=== PATIENT | female | born 2000 | race Caucasian/White ===

== ENCOUNTER 2022-06-08 14:51 | Outpatient (CLI) | payer BC, SELFPAY | END 2022-06-08 14:52 | disposition home or self-care (01) | PROVIDERS: PCP Nurse Practitioner Family; Visit Provider Family Medicine | DX: Z01.419 Encounter for gynecological examination (general) (routine) without abnormal findings (principal); E66.9 Obesity, unspecified; E03.9 Hypothyroidism, unspecified; E55.9 Vitamin D deficiency, unspecified; Z13.6 Encounter for screening for cardiovascular disorders; Z13.1 Encounter for screening for diabetes mellitus | CPT/HCPCS: 80061; 82306; 82947; 84443 ==

== ENCOUNTER 2022-10-26 08:27 | Outpatient (CLI) | payer BC, SELFPAY ==
[2022-10-26 11:04] LABS: Chlamydia DNA Amplified* NOT DETECTED (No Detected); GC DNA Amplified* NOT DETECTED (No Detected)
== END 2022-10-26 08:28 | disposition home or self-care (01) ==
PROVIDERS: PCP Nurse Practitioner Family; Visit Provider Registered Nurse
DX: Z11.3 Encounter for screening for infections with a predominantly sexual mode of transmission (principal)
CPT/HCPCS: 82670; 83001; 83002; 83498; 84146; 84270; 84402; 84403; 84443; 86592; 86703; 86803; 87340; 87491; 87591

== ENCOUNTER 2023-10-17 08:23 | Outpatient (CLI) | payer BC, SELFPAY | END 2023-10-17 08:24 | disposition home or self-care (01) | PROVIDERS: PCP Family Medicine; Visit Provider Family Medicine | DX: E78.5 Hyperlipidemia, unspecified (principal); E03.9 Hypothyroidism, unspecified; E55.9 Vitamin D deficiency, unspecified; E66.9 Obesity, unspecified; E28.2 Polycystic ovarian syndrome | CPT/HCPCS: 80053; 80061; 82306; 84439; 84443 ==

== ENCOUNTER 2025-02-10 13:04 | Outpatient (CLI) | payer BC, SELFPAY | END 2025-02-10 13:05 | disposition home or self-care (01) | PROVIDERS: PCP Family Medicine; Visit Provider Family Medicine | DX: E03.9 Hypothyroidism, unspecified (principal); E28.2 Polycystic ovarian syndrome; E55.9 Vitamin D deficiency, unspecified; E78.5 Hyperlipidemia, unspecified; E66.9 Obesity, unspecified; Z68.27 Body mass index [BMI] 27.0-27.9, adult | CPT/HCPCS: 80061; 82306; 84443; 87491; 87591 ==